=== PATIENT | female | born 1950 | race Caucasian/White ===

== ENCOUNTER 2017-09-21 10:17 | Emergency (ER) | payer MEDICARE, OTHER ==
[2017-09-21 10:32] VITALS: TEMP 97.6
[2017-09-21] MEDS ORDERED: LIDOCAINE VIS-MYLANTA 30 ML UD PO ONE (10:39)
[2017-09-21] MEDS ORDERED: FAMOTIDINE 20 MG TAB PO ONE (10:39)
[2017-09-21] MEDS ORDERED: PANTOPRAZOLE SODIUM IV 40 MG VIAL IV ONE (10:39)
[2017-09-21] MEDS ORDERED: ONDANSETRON ODT 8 MG TAB SL ONE (10:41)
[2017-09-21] MEDS ORDERED: SODIUM CHLORIDE 0.9% 1000ML 1,000 ML IVS ONE (11:53)
--- NOTE | 2017-09-21 12:03 | RAD ---
EXAM DESCRIPTION: Obstructive series, 3 radiographs CLINICAL HISTORY: Epigastric abdomen pain. Melena. Forte's esophagus FINDINGS/ IMPRESSION: Normal heart size. Atherosclerotic aorta. No pulmonary edema, infiltrates or effusions. Evidence of apical emphysema Scattered large and small intestinal bowel gas. No bowel obstruction, pneumatosis, or free intraperitoneal air. There is no organomegaly or obvious abdominal mass lesion. Electronically signed by: Eddie Alcala MD 09/21/2017 12:01 PM [facility]
[2017-09-21 12:52] VITALS: O2SAT 98
[2017-09-21] MEDS ORDERED: SUCRALFATE 1 GM/10 ML 1 GM UD PO ONE (14:24)
[2017-09-21] MEDS ORDERED: PROMETHAZINE HCL 25 MG TAB PO ONE (14:24)
--- NOTE | 2017-09-21 14:26 | ED.PDOC ---
History of Present Illness - General Chief Complaint: Abdominal Pain Stated Complaint: vomiting,abd pain Time Seen by Provider: 09/21/17 10:32 Source: patient, family Exam Limitations: no limitations - History of Present Illness Initial Comments: the patient is a 67-year-old female presenting to the emergency room secondary to nausea and vomiting for approximately the last 12 hours. She is not having diarrhea. She reports having one bowel movement yesterday evening that could be characterized as melanotic. No fevers. She has been having corresponding abdominal pain in the epigastric area. The patient had a lap band that was placed and removed approximately 8 months ago. 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 She is not taking any GI prophylactic type medication for the last 3 months. No fevers. No generalized peritonitis. No bruising. No hiccups. No chest pain or shortness of breath. There has not been any blood in the vomitus. Severity: moderate Improving Factors: medication Worsening Factors: eating Associated Symptoms: malaise, nausea/vomiting Allergies/Adverse Reactions: Allergies NO KNOWN ALLERGY Allergy (Verified 09/21/17 10:32) Home Medications: Ambulatory Orders Levothyroxine Sodium 137 mcg PO DAILY 09/21/17 Ondansetron [Zofran Odt] 4 mg PO Q4H PRN #10 tab 09/21/17 Sucralfate Tab [Carafate Tab] 1 gm PO QID #120 tab 09/21/17 Venlafaxine HCl [Effexor Tab] 175 mg PO DAILY 09/21/17 Review of Systems - Review of Systems Constitutional: States: malaise, weakness EENTM: States: no symptoms reported Respiratory: States: no symptoms reported Cardiology: States: no symptoms reported Gastrointestinal/Abdominal: States: abdominal pain, nausea, vomiting Genitourinary: States: no symptoms reported Musculoskeletal: States: no symptoms reported Skin: States: no symptoms reported Neurological: States: no symptoms reported Endocrine: States: no symptoms reported All other Systems: No Change from Baseline Past Medical History (General) - Patient Medical History Hx Congestive Heart Failure: No Hx Thyroid Disease: Yes Hx Diabetes: No Hx Cancer: Yes - Breast - Vaccination History Hx Influenza Vaccination: No Hx Pneumococcal Vaccination: No - Social History Hx Tobacco Use: No Family Medical History - Family History Mother Family History: Unknown Living Status: Unknown Physical Exam - Physical Exam General Appearance: Alert, No apparent distress Eye Exam: bilateral normal Ears, Nose, Throat: hearing grossly normal, normal ENT inspection, normal pharynx Neck: non-tender, full range of motion, supple Respiratory: lungs clear, normal breath sounds, no respiratory distress, no accessory muscle use Cardiovascular/Chest: normal peripheral pulses, regular rate, rhythm, no edema Peripheral Pulses: radial,right: 2+, radial,left: 2+ Gastrointestinal/Abdominal: soft, other - epigastric discomfort palpation. No definite palpable mass. No true rebound. No generalized peritonitis. No bruising. Rectal Exam: deferred Back Exam: normal inspection, no CVA tenderness, no vertebral tenderness Extremity: normal range of motion, non-tender, normal inspection, no pedal edema , normal capillary refill Neurologic: folder machine II-XII nml as tested, alert, normal mood/affect, oriented x 3 Skin Exam: normal color Comments: Vital Signs - 24 hr 09/21/17 09/21/17 10:28 12:51 Temperature 97.6 F Pulse Rate [ 74 80 Left Ulnar] Respiratory 20 20 Rate Blood Pressure 149/89 136/87 [Left Arm] O2 Sat by Pulse 97 98 Oximetry Progress - Progress Progress: 09/21/17 14:27 the patient is a 67-year-old female presenting to the emergency room secondary to nausea and vomiting and possibly one stool with melena. lab work and x-ray are reassuring at this point. She did have some mild dehydration and did receive a liter of IV fluids. Given her history, it is most likely that she is having recurrent gastritis and possibly early ulcer formation. The patient has responded very well to nausea medications as well as GI medications. The patient will be written for Zofran, Carafate to be taken as an outpatient. She can additionally resume her Protonix twice daily for the next couple of months. She can use Maalox as needed if symptoms flare again. She needs to keep herself well hydrated and maintain a bland diet with small frequent meals for the next couple of weeks. The patient has symptomatically improved significantly since her arrival here however if she deteriorates, she will need to get back here. ER warnings were given. She should follow-up with her primary care doctor early next week. vital signs have remained stable and there is no current evidence of any active bleeding. The patient has been monitored for approximately 4 hours. 11/08/17 14:31 - Results/Orders Results/Orders: Laboratory Results - last 24 hr 09/21/17 09/21/17 09/21/17 10:50 10:50 10:50 WBC 9.9 RBC 4.67 Hgb 14.3 Hct 41.7 MCV 89.2 MCH 30.6 MCHC 34.4 RDW 13.1 Plt Count 230 MPV 7.3 L Absolute Neuts (auto) 8.50 H Absolute Lymphs (auto) 0.80 L Absolute Monos (auto) 0.50 Absolute Eos (auto) 0.00 Absolute Basos (auto) 0.00 Neutrophils % 85.6 H Lymphocytes % 8.3 L Monocytes % 5.5 Eosinophils % 0.1 L Basophils % 0.5 PT 10.7 INR 0.950 PTT (SP) 30.0 Sodium 141 Potassium 4.0 Chloride 106 Carbon Dioxide 26 Anion Gap 13.0 BUN 17 Creatinine 0.67 BUN/Creatinine Ratio 25.4 H Random Glucose 131 H Serum Osmolality 284.6 Lactic Acid Calcium 9.8 Total Bilirubin 0.5 AST 26 ALT 23 Alkaline Phosphatase 47 Creatine Kinase 104 CK-MB (CK-2) 2.9 CK-MB (CK-2) % Not Reportable Troponin I < 0.02 Serum Total Protein 7.8 Albumin 4.7 Globulin 3.1 Albumin/Globulin Ratio 1.5 Amylase 30 Lipase 23 TSH 0.77 Urine Color Urine Appearance Urine pH Ur Specific [place] Urine Protein Urine Glucose (UA) Urine Ketones Urine Blood Urine Nitrite Urine Bilirubin Urine Urobilinogen Ur Leukocyte Esterase Urine RBC Urine WBC Ur Epithelial Cells Amorphous Sediment Urine Bacteria Urine Mucus 09/21/17 09/21/17 10:50 13:40 WBC RBC Hgb Hct MCV MCH MCHC RDW Plt Count MPV Absolute Neuts (auto) Absolute Lymphs (auto) Absolute Monos (auto) Absolute Eos (auto) Absolute Basos (auto) Neutrophils % Lymphocytes % Monocytes % Eosinophils % Basophils % PT INR PTT (SP) Sodium Potassium Chloride Carbon Dioxide Anion Gap BUN Creatinine BUN/Creatinine Ratio Random Glucose Serum Osmolality Lactic Acid 2.2 Calcium Total Bilirubin AST ALT Alkaline Phosphatase Creatine Kinase CK-MB (CK-2) CK-MB (CK-2) % Troponin I Serum Total Protein Albumin Globulin Albumin/Globulin Ratio Amylase Lipase TSH Urine Color Yellow Urine Appearance Clear Urine pH 6.5 Ur Specific [place] >= 1.030 Urine Protein 30 Urine Glucose (UA) Negative Urine Ketones Negative Urine Blood Negative Urine Nitrite Negative Urine Bilirubin Small H Urine Urobilinogen 1.0 Ur Leukocyte Esterase Negative Urine RBC 0-1 Urine WBC 0-1 Ur Epithelial Cells 1-3 Amorphous Sediment 2+ Urine Bacteria Rare Urine Mucus Small acute abdominal series shows no evidence of pulmonary infiltrates, no free air in the abdomen and no evidence of any obstruction. Departure - Departure Clinical Impression: Abdominal pain Qualifiers: Abdominal location: epigastric Qualified Code(s): R10.13 - Epigastric pain Gastritis Qualifiers: Gastritis type: unspecified gastritis Chronicity: acute Gastritis bleeding: presence of bleeding unspecified Qualified Code(s): K29.00 - Acute gastritis without bleeding Disposition: Discharge to Home or Self Care Departure Forms: ED Discharge - Pt. Copy, Patient Portal Self Enrollment Instructions: DI for Gastritis Diet: bland diet Activity: increase activity as tolerated Prescriptions: Ondansetron [Zofran Odt] 4 mg PO Q4H PRN #10 tab PRN Reason: Vomiting Sucralfate Tab [Carafate Tab] 1 gm PO QID #120 tab Home Medications: Ambulatory Orders Levothyroxine Sodium 137 mcg PO DAILY 09/21/17 Ondansetron [Zofran Odt] 4 mg PO Q4H PRN #10 tab 09/21/17 Sucralfate Tab [Carafate Tab] 1 gm PO QID #120 tab 09/21/17 Venlafaxine HCl [Effexor Tab] 175 mg PO DAILY 09/21/17 Additional Instructions: the patient is a 67-year-old female presenting to the emergency room secondary to nausea and vomiting and possibly one stool with melena. lab work and x-ray are reassuring at this point. She did have some mild dehydration and did receive a liter of IV fluids. Given her history, it is most likely that she is having recurrent gastritis and possibly early ulcer formation. The patient has responded very well to nausea medications as well as GI medications. The patient will be written for Zofran, Carafate to be taken as an outpatient. She can additionally resume her Protonix twice daily for the next couple of months. She can use Maalox as needed if symptoms flare again. She needs to keep herself well hydrated and maintain a bland diet with small frequent meals for the next couple of weeks. The patient has symptomatically improved significantly since her arrival here however if she deteriorates, she will need to get back here. ER warnings were given. She should follow-up with her primary care doctor early next week.
[2017-09-21 14:44] VITALS: BP 135/69
== END 2017-09-21 14:44 | disposition home or self-care (01) ==
LOC: ER 10:17
DX: K29.00 Acute gastritis without bleeding (principal); E07.9 Disorder of thyroid, unspecified; Z85.3 Personal history of malignant neoplasm of breast
CPT/HCPCS: 36415; 74020; 80053; 81001; 82150; 82550; 82553; 83605; 83690; 84443; 84484; 85025; 85610; 85730; J7030; Q0169